=== PATIENT | female | born 2000 | race Caucasian/White ===

== ENCOUNTER 2020-01-25 18:44 | Outpatient (CLI) | payer OTHER ==
--- NOTE | 2020-01-25 19:22 | RAD ---
CHEST TWO VIEWS: History: Chest pain Comparison: None FINDINGS: The lungs are clear. No pneumothorax. No effusion. Cardiac silhouette and mediastinal contours are wi thin normal limits. No acute osseous abnormality. IMPRESSION: No acute intrathoracic abnormality. POS: HOME
--- NOTE | 2020-01-25 19:26 | RAD ---
THORACIC SPINE THREE VIEWS: History: Pain. M54.6 Comparison: None FINDINGS: There is no acute fracture or malalignment. There is disc and scoliotic change. No listhesis. Visualized posterior ribs are intact. IMPRESSION: No acute osseous abnormality. POS: HOME
== END 2020-01-25 18:45 | disposition home or self-care (01) ==
LOC: SCSRAD 18:44
PROVIDERS: ATTEND Family Medicine
DX: M54.6 Pain in thoracic spine (principal)
CPT/HCPCS: 71046; 72072